=== PATIENT | female | born 1965 | race African-American/Black ===

== ENCOUNTER 2021-08-11 18:48 | Emergency (ER) | payer OTHER ==
[~2021-08-11] VITALS: Ht 177.8 cm; Wt 109.8 kg
[2021-08-11 22:33] VITALS: BP 196/98
== END 2021-08-11 22:35 | disposition home or self-care (01) ==
LOC: ER 18:48
DX: T78.3XXA Angioneurotic edema, initial encounter (principal); I10 Essential (primary) hypertension; Z88.8 Allergy status to other drugs, medicaments and biological substances